=== PATIENT | female | born 1990 ===

== ENCOUNTER 2017-02-19 12:55 | Emergency (ER) | payer MEDICAID ==
[2017-02-19 12:56] VITALS: BMI 24.7
[2017-02-19 13:08] VITALS: PULSE 88; O2SAT 97
--- NOTE | 2017-02-19 14:41 | C.PDOC ---
History Of Present Illness 26 y/o female pmhx diabetes, insulin dependent presents to the ED with complaints of hypoglycemic episode. Pt took usual dose 20 units levamir and humalog this morning. Pt states she ate breakfast and had yogurt and juice for lunch. Pt later went grocery shopping and felt light headed, shaky and hungry with near-syncopal episode. Pt recalls the entire event, her was with her and caught her before she fell to ground. BLS arrived and gave 1 dose or oral glucose, finger stick was 287 on arrival. She reports feeling well now. She currently denies headache, dizziness, chest pain, SOB, abdominal pain, vomiting or any other complaints. Time Seen by Provider: 02/19/17 13:40 Chief Complaint (Nursing): Syncope History Per: Patient History/Exam Limitations: no limitations Onset/Duration Of Symptoms: Mins Current Symptoms Are (Timing): Better Activity At Onset Of Symptoms: Walking Associated Symptoms Preceding Syncopal Episode: Lightheadedness Fall Associated With With Symptoms: No Severity: Mild Recent travel outside of the [place]: No Past Medical History Reviewed: Historical Data, Nursing Documentation, Vital Signs Vital Signs: Last Vital Signs Temp 97.9 F 02/19/17 13:02 Pulse 88 02/19/17 13:02 Resp 20 02/19/17 13:02 BP 104/63 02/19/17 13:02 Pulse Ox 97 02/19/17 15:06 - Medical History PMH: Diabetes Surgical History: Appendectomy (1995) Family History: States: Unknown Family Hx - Social History Hx Alcohol Use: No Hx Substance Use: No - Immunization History Hx Tetanus Toxoid Vaccination: No Hx Influenza Vaccination: No Hx Pneumococcal Vaccination: No Review Of Systems Except As Marked, All Systems Reviewed And Found Negative. Cardiovascular: Positive for: Light Headedness (light headed, shaky, hypoglycemic episode; resolved). Negative for: Chest Pain Respiratory: Negative for: Shortness of Breath Gastrointestinal: Negative for: Vomiting, Abdominal Pain Neurological: Negative for: Headache, Dizziness Physical Exam - Physical Exam Appears: Well, Non-toxic, No Acute Distress Skin: Normal Color, Warm, Dry, No Rash Head: Atraumatic, Normacephalic, No Tenderness, No Swelling Eye(s): bilateral: Normal Inspection, PERRL, EOMI Oral Mucosa: Moist Neck: Normal, Normal ROM, Supple Chest: Symmetrical Cardiovascular: Rhythm Regular, No Murmur Respiratory: Normal Breath Sounds, No Rales, No Rhonchi, No Wheezing Gastrointestinal/Abdominal: Normal Exam, Soft, No Tenderness Back: Normal Inspection, No CVA Tenderness, No Vertebral Tenderness Extremity: Normal ROM, No Tenderness, No Deformity, No Swelling Extremity: Bilateral: Atraumatic, Normal ROM Neurological/Psych: Oriented x3, Normal Speech, Normal Cognition, Normal Cranial Nerves, Normal Motor, Normal Sensation Gait: Steady ED Course And Treatment ECG: Interpreted By Me, Viewed By Me ECG Rhythm: Sinus Rhythm ECG Interpretation: Normal Interpretation Of ECG: Normal axis Rate From EC (BPM) O2 Sat by Pulse Oximetry: 97 (room air) Pulse Ox Interpretation: Normal Medical Decision Making Medical Decision Makin yo F with pmh of IDDM, presents to the ER after an episode of hypoglycemia. FS at this time is 287. Uhcg (-) On re-evaluation, pt is awake, alert and oriented x3, in no acute distress. States that she feels well and feels comfortable going home. Pt is ambulating in a normal steady gait with a normal neuro exam. Of note, the patient is asking for a refill of her levemir and humalog. Pt advised to follow up with her pmd in 2 days without fail for re-evaluation. Rx provided. Advised to eat on time to avoid symptoms of hypoglycemia and to eat an adequate meal with snacks in between. Otherwise instructed to return to the ER at any time for any new or worsening symptoms. Disposition - Disposition Disposition: HOME/ ROUTINE Disposition Time: 14:30 Condition: STABLE Additional Instructions: Follow up with your pmd in 2 days without fail for re-evaluation. Return to the ER at any time for any new or worsening symptoms. Prescriptions: Insulin Detemir [Levemir] 20 unit SC DAILY #1 unit Insulin Lispro [Humalog (Insulin Lispro)] 6 unit SQ TID #1 cartridge Instructions: Diabetic Hypoglycemia (ED) Forms: Work Excuse Print Language: ICELANDIC - Clinical Impression Clinical Impression: Hypoglycemia - PA / MANAGER MATERIAL / Resident Statement MD/DO has reviewed & agrees with the documentation as recorded. - Scribe Statement The provider has reviewed the documentation as recorded by the Zeeshan Armenta All medical record entries made by the Traciibdon were at my direction and personally dictated by me. I have reviewed the chart and agree that the record accurately reflects my personal performance of the history, physical exam, medical decision making, and the department course for this patient. I have also personally directed, reviewed, and agree with the discharge instructions and disposition.
--- NOTE | 2017-02-19 14:43 | C.PDOC ---
Time Seen by Provider: 02/19/17 13:40 Chief Complaint (Nursing): Syncope Past Medical History Vital Signs: Last Vital Signs Temp 97.9 F 02/19/17 13:02 Pulse 88 02/19/17 13:02 Resp 20 02/19/17 13:02 BP 104/63 02/19/17 13:02 Pulse Ox 97 02/19/17 13:02 - Medical History PMH: Diabetes Denies: HIV, Chronic Kidney Disease Surgical History: Appendectomy (1995) Family History: States: Unknown Family Hx - Social History Hx Alcohol Use: No Hx Substance Use: No - Immunization History Hx Tetanus Toxoid Vaccination: No Hx Influenza Vaccination: No Hx Pneumococcal Vaccination: No ED Course And Treatment O2 Sat by Pulse Oximetry: 97 Medical Decision Making Medical Decision Makin yo F with pmh of IDDM, presents to the ER after an episode of hypoglycemia. FS at this time is 287. EKG : Uhcg (-) On re-evaluation, pt is awake, alert and oriented x3, in no acute distress. States that she feels well and feels comfortable going home. Pt is ambulating in a normal steady gait with a normal neuro exam. Pt advised to follow up with her pmd in 2 days without fail for re-evaluation. Advised to eat on time to avoid symptoms of hypoglycemia and to eat an adequate meal with snacks in between. Otherwise instructed to return to the ER at any time for any new or worsening symptoms. Disposition - Disposition Disposition: HOME/ ROUTINE Disposition Time: 14:41 Condition: STABLE Additional Instructions: Follow up with your pmd in 2 days without fail for re-evaluation. Return to the ER at any time for any new or worsening symptoms. 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
[2017-02-19 15:09] VITALS: BP 100/62; RESP 18; TEMP 98.1
--- NOTE | 2017-02-20 12:47 | CARD ---
APPROVED REPORT EKG Measurement Heart [id number] <Conclusion> Normal sinus rhythm Cannot rule out Inferior infarct, age undetermined Abnormal ECG
== END 2017-02-19 15:16 | disposition home or self-care (01) ==
LOC: C.ER 12:55
DX: E11.649 Type 2 diabetes mellitus with hypoglycemia without coma (principal); Z79.4 Long term (current) use of insulin